=== PATIENT | female | born 1990 ===

== ENCOUNTER 2021-01-09 09:30 | Outpatient (CLI) | payer OTHER ==
[2021-01-09 17:34] LABS: SARS-CoV-2 PCR by NAA Not Detected (NotDetected)
== END 2021-01-09 09:31 | disposition home or self-care (01) ==
LOC: CSHLAB 09:30
PROVIDERS: ATTEND Internal Medicine
DX: Z20.822 Contact with and (suspected) exposure to COVID-19 (principal)
CPT/HCPCS: U0003; U0005

== ENCOUNTER 2021-01-14 14:33 | Outpatient (CLI) | payer OTHER | END 2021-01-14 14:34 | disposition home or self-care (01) | LOC: CSHCP 14:33 | PROVIDERS: ATTEND Internal Medicine | DX: J45.40 Moderate persistent asthma, uncomplicated (principal) | CPT/HCPCS: 94060; 94726; 94760 ==